=== PATIENT | female | born 1990 | race Caucasian/White ===

== ENCOUNTER → 2018-07-14 | Outpatient (REF) | payer BC ==
[2018-07-20 14:51] LABS: HPV HYBRID CAPTURE II Positive (Negative)
== END ==
LOC: M LAB LCGH 12:15
PROVIDERS: ATTEND Family Medicine
DX: R87.612 Low grade squamous intraepithelial lesion on cytologic smear of cervix (LGSIL) (principal)
CPT/HCPCS: 87624; G0123

== ENCOUNTER → 2018-08-11 | Outpatient (REF) | payer BC | LOC: M LAB LCGH 10:10 | PROVIDERS: ATTEND Obstetrics & Gynecology | DX: R87.612 Low grade squamous intraepithelial lesion on cytologic smear of cervix (LGSIL) (principal) ==

== ENCOUNTER → 2018-11-02 | Outpatient (REF) | LOC: M LAB LCGH 13:38 | PROVIDERS: ATTEND Physician Assistant | DX: D48.5 Neoplasm of uncertain behavior of skin (principal) ==

== ENCOUNTER → 2022-06-07 | Outpatient (REF) | LOC: M LAB LCGH 10:17 | PROVIDERS: ATTEND Obstetrics & Gynecology Reproductive Endocrinology | DX: Z02.89 Encounter for other administrative examinations (principal) ==

== ENCOUNTER → 2022-06-14 | Outpatient (REF) | LOC: M LAB LCGH 11:00 | PROVIDERS: ATTEND Obstetrics & Gynecology Reproductive Endocrinology | DX: Z02.89 Encounter for other administrative examinations (principal) ==

== ENCOUNTER → 2022-06-22 | Outpatient (REF) | LOC: M LAB LCGH 10:41 | PROVIDERS: ATTEND Obstetrics & Gynecology Reproductive Endocrinology | DX: Z79.890 Hormone replacement therapy (principal) ==

== ENCOUNTER → 2023-04-25 | Outpatient (CLI) | payer BC, OTHER | LOC: M WHC 06:44 | PROVIDERS: ATTEND Advanced Practice Midwife | DX: Z36.2 Encounter for other antenatal screening follow-up (principal); Z3A.19 19 weeks gestation of pregnancy ==

== ENCOUNTER → 2023-06-20 | Outpatient (CLI) | payer OTHER | LOC: M WHC 09:37 | PROVIDERS: ATTEND Obstetrics & Gynecology | DX: O09.812 Supervision of pregnancy resulting from assisted reproductive technology, second trimester (principal) ==

== ENCOUNTER → 2023-06-29 | Outpatient (CLI) | payer OTHER | LOC: M LAB 06:25 | PROVIDERS: ATTEND Obstetrics & Gynecology | DX: R73.09 Other abnormal glucose (principal) ==

== ENCOUNTER 2023-08-22 10:49 | Outpatient (CLI) | payer OTHER, BC ==
[~2023-08-22] VITALS: Ht 177.8 cm; Wt 90.4 kg
[2023-08-22 11:04] VITALS: BP 136/88; O2SAT 98
[2023-08-22] MEDS ORDERED: HOME MED LIST COMPLETE! XX SCH (11:05)
[2023-08-22 11:16] VITALS: BP 120/80
[2023-08-22] MEDS: BETAMETHASONE SOLUSPAN 6MG/ML 5ML VIAL IM STA (11:16)
[2023-08-22 11:20] VITALS: BP 115/77
[2023-08-25] MEDS ORDERED: COLA100C5 PO (09:28)
[2023-08-25] MEDS ORDERED: OXYC-517 PO (09:28)
[2023-08-25] MEDS ORDERED: ACET-683 PO (09:28)
[2023-08-25] MEDS ORDERED: IBUP-1022 PO (09:28)
== END 2023-08-22 11:27 | disposition home or self-care (01) ==
LOC: M LDO 10:49
PROVIDERS: ATTEND Advanced Practice Midwife
DX: O09.813 Supervision of pregnancy resulting from assisted reproductive technology, third trimester (principal); O34.13 Maternal care for benign tumor of corpus uteri, third trimester; O09.293 Supervision of pregnancy with other poor reproductive or obstetric history, third trimester; O34.29 Maternal care due to uterine scar from other previous surgery; D25.9 Leiomyoma of uterus, unspecified; Z3A.36 36 weeks gestation of pregnancy
CPT/HCPCS: 96372; G0463; J0702

== ENCOUNTER → 2023-08-22 | Outpatient (CLI) | payer BC, OTHER ==
[~2023-08-22] MED LIST: BUPR15TA PO; MULTTAB20 PO
[2023-08-22 17:37] LABS: HEMATOCRIT 34.4 % (36.0-47.0); MEAN CORPUSCULAR VOLUME 90.8 fl (80.0-96.0); PLATELET COUNT, AUTOMATED 305 10^3/uL (150-450); RED BLOOD COUNT 3.79 10^6/uL (4.00-5.40); WHITE BLOOD COUNT 10.1 10^3/uL (4.0-10.0)
[2023-08-22 17:58] LABS: TOTAL PROTEIN,RANDOM URINE 12.8 MG/DL (0.0-14.0)
[2023-08-22 17:59] LABS: ALBUMIN 2.8 G/DL (3.2-5.2); ALKALINE PHOSPHATASE 103 U/L (46-116); ALT/SGPT 23 U/L (7.0-40); AST/SGOT 19 U/L (<34); BILIRUBIN,TOTAL 0.2 MG/DL (0.3-1.2); BLOOD UREA NITROGEN 9 MG/DL (9-23); CALCIUM LEVEL 8.6 MG/DL (8.5-10.1); CARBON DIOXIDE LEVEL 25 MMOL/L (20-31); CHLORIDE LEVEL 106 MMOL/L (98-107); CREATININE FOR GFR 0.73 MG/DL (0.55-1.30); GLOMERULAR FILTRATION RATE > 60.0 (>60); GLUCOSE, FASTING 146 MG/DL (60-100); POTASSIUM SERUM 3.9 MMOL/L (3.5-5.1); SODIUM LEVEL 138 MMOL/L (136-145); TOTAL PROTEIN 6.2 G/DL (5.7-8.2)
[2023-08-22 18:03] LABS: CREATININE,RANDOM URINE 136.4 MG/DL
== END ==
LOC: M PLALAB 14:46
PROVIDERS: ATTEND Obstetrics & Gynecology
DX: O16.3 Unspecified maternal hypertension, third trimester (principal)

== ENCOUNTER 2023-08-23 10:56 | Outpatient (CLI) | payer BC ==
[~2023-08-23] VITALS: Ht 177.8 cm; Wt 90.0 kg
[2023-08-23 11:10] VITALS: BP 115/83
[2023-08-23] MEDS: BETAMETHASONE SOLUSPAN 6MG/ML 5ML VIAL IM STA (11:35)
[2023-08-25] MEDS ORDERED: COLA100C5 PO (09:28)
[2023-08-25] MEDS ORDERED: ACET-683 PO (09:28)
[2023-08-25] MEDS ORDERED: IBUP-1022 PO (09:28)
[2023-08-25] MEDS ORDERED: OXYC-517 PO (09:28)
== END 2023-08-23 11:20 | disposition home or self-care (01) ==
LOC: M LDO 10:56
PROVIDERS: ATTEND Obstetrics & Gynecology
DX: O13.3 Gestational [pregnancy-induced] hypertension without significant proteinuria, third trimester (principal); Z3A.36 36 weeks gestation of pregnancy
CPT/HCPCS: 96372; G0463; J0702